=== PATIENT | female | born 1955 | race Caucasian/White ===

== ENCOUNTER 2017-02-06 09:28 | Outpatient (CLI) | payer MEDICARE ==
[2017-02-06 12:34] LABS: Bilirubin Negative (Negative); Blood, Urine Negative (Negative); Clarity Clear (Clear); Glucose, Urine (Dipstick) Negative (Negative); Leukocyte Moderate (Negative); Nitrite Negative (Negative); Protein, Urine (Dipstick) Negative (Neg-Trace); Specific Gravity, Urine 1.015 (1.005-1.030); Urobilinogen 0.2 mg/dL (0.2-1.0)
[2017-02-06 12:42] LABS: #Eosinphils 0.1 thou/uL (0.0-0.7); #Lymphocytes 1.7 thou/uL (1.20-3.40); #Monocytes 0.4 thou/uL (0.11-0.59); #Neutrophils 3.2 thou/uL (1.40-6.50); %Basophils 0.8 % (0.0-1.0); %Eosinophils 2.3 % (0.0-10.0); %Lymphocytes 30.7 % (21.0-51.0); %Monocytes 7.4 % (0.0-10.0); %Neutrophils 58.8 % (42.0-75.0); Hemoglobin 13.6 g/dL (12.0-16.0); Mean Corpuscular HGB CONC 31.7 g/dL (32.0-36.0); Mean Corpuscular Hemoglobin 28.5 pg (27.0-31.0); Mean Corpuscular Volume 90.1 fl (81.0-99.0); Mean Platelet Volume 6.9 fL (7.4-10.4); Platelet Count 217 thou/uL (130-400); RBC Distribution Width 12.3 % (11.5-14.5); Red Blood Cell (RBC) Count 4.76 mill/uL (4.20-5.40); White Blood Cell (WBC) Count 5.4 thou/uL (4.8-10.8)
[2017-02-06 12:53] LABS: ALT (SGPT) 39 U/L (8-55); AST (SGOT) 41 U/L (5-34); Albumin 3.7 g/dL (3.4-4.8); Alkaline Phosphatase 114 U/L (40-150); Anion Gap 15 mmol/L (10-20); BUN (Urea Nitrogen) 21 mg/dL (9.8-20.1); Bilirubin, Direct 0.3 mg/dL (0.1-0.3); Bilirubin, Total 0.5 mg/dL (0.2-1.2); Calc. Creatinine Clearance 0 mL/min (70-130); Calcium 8.8 mg/dL (7.8-10.44); Carbon Dioxide 27 mmol/L (23-31); Cardiac Risk 1.9 (Less than 4.5); Chloride 102 mmol/L (98-107); Cholesterol 115 mg/dl (< 200 Desired); Estimated GFR-MDRD 78; Glucose 113 mg/dL (80-115); HDL Cholesterol 60 mg/dL (>60 Neg Risk); LDL Cholesterol, Calculated 25 mg/dL; Potassium 4.6 mmol/L (3.5-5.1); Protein, Total 6.1 g/dL (6.0-8.3); Sodium 139 mmol/L (136-145); Triglycerides 149 mg/dL (Less than 150)
[2017-02-06 13:23] LABS: Hemoglobin A1c 5.1 % (4.0-6.0)
[2017-02-06 13:28] LABS: Bacteria/HPF Rare-Few HPF (None Seen); RBC/HPF None Seen HPF (0-3); Squamous Epithelial 0-3 HPF (0-3); WBC/HPF 0-3 HPF (0-3)
== END 2017-02-06 09:29 | disposition home or self-care (01) ==
LOC: NAVSJIPCSP 09:28
PROVIDERS: ATTEND Family Medicine
DX: E78.00 Pure hypercholesterolemia, unspecified (principal); E03.9 Hypothyroidism, unspecified; I10 Essential (primary) hypertension; N39.0 Urinary tract infection, site not specified; Z79.899 Other long term (current) drug therapy
CPT/HCPCS: 36415; 80048; 80061; 80076; 81003; 81015; 83036; 84443; 85025

== ENCOUNTER 2017-11-12 07:44 | Outpatient (CLI) | payer MEDICARE ==
--- NOTE | 2017-11-12 09:16 | ULT ---
ULTRASOUND ABDOMEN: Date: 11/12/17 HISTORY: Hepatitis C, B18.2. COMPARISON: None. TECHNIQUE: Real-time Plaza scale and color evaluation of the abdomen is performed with the curvilinear transducer . FINDINGS: Visualized portion of the pancreas is unremarkable. Aorta and IVC are unremarkable. Hepatic echotextu re is normal. No mass. Liver measures 13.0 cm in length. Common bile duct measures 4.0 mm, normal. Right kidney measures 9.2 x 3.8 x 4.5 cm, without mass, hydronephrosis, or abnormal calcification. Gallbladder is normal. Spleen measures 9.9 cm in length. Left kidney measures 10.7 x 4.4 x 4.6 cm, without mass, hydronephro sis, or calcifications. IMPRESSION: Normal examination. No evidence of hepatic mass. POS: [facility]
== END 2017-11-12 07:45 | disposition home or self-care (01) ==
LOC: NAV ULT 07:44
PROVIDERS: ATTEND Internal Medicine Gastroenterology
DX: B19.20 Unspecified viral hepatitis C without hepatic coma (principal)
CPT/HCPCS: 76700

== ENCOUNTER 2021-11-06 17:04 | Emergency (ER) | payer MEDICARE | END 2021-11-06 17:47 | disposition home or self-care (01) | LOC: NAV ERS 17:04 | DX: S31.41XD Laceration without foreign body of vagina and vulva, subsequent encounter (principal); I10 Essential (primary) hypertension; G47.00 Insomnia, unspecified; M19.90 Unspecified osteoarthritis, unspecified site; E03.9 Hypothyroidism, unspecified; E78.5 Hyperlipidemia, unspecified; E78.00 Pure hypercholesterolemia, unspecified; Z79.890 Hormone replacement therapy; Z79.899 Other long term (current) drug therapy; X58.XXXD Exposure to other specified factors, subsequent encounter | CPT/HCPCS: 99282 ==

== ENCOUNTER 2024-09-30 15:38 | Emergency (ER) | payer OTHER ==
[2024-09-30] MEDS ORDERED: Lidocaine 1% (PF) 30 ML VIAL ONE (15:48)
[2024-09-30] MEDS ORDERED: Boostrix 0.5 ML (Tdap) VIAL (>/=7 yrs of age) ONE (16:52)
== END 2024-09-30 17:10 | disposition home or self-care (01) ==
LOC: NAV ERS 15:38
DX: S61.213A Laceration without foreign body of left middle finger without damage to nail, initial encounter (principal); I10 Essential (primary) hypertension; E78.5 Hyperlipidemia, unspecified; E03.9 Hypothyroidism, unspecified; Z23 Encounter for immunization; Z79.890 Hormone replacement therapy; Z79.899 Other long term (current) drug therapy; W25.XXXA Contact with sharp glass, initial encounter
CPT/HCPCS: 12002; 90471; 90715

== ENCOUNTER 2025-07-31 16:11 | Emergency (ER) | payer OTHER | END 2025-07-31 20:20 | disposition home or self-care (01) | LOC: NAV ERS 16:11 | DX: S80.12XA Contusion of left lower leg, initial encounter (principal); I10 Essential (primary) hypertension; E03.9 Hypothyroidism, unspecified; E78.5 Hyperlipidemia, unspecified; Z79.899 Other long term (current) drug therapy; Z79.890 Hormone replacement therapy; W19.XXXA Unspecified fall, initial encounter; Y92.009 Unspecified place in unspecified non-institutional (private) residence as the place of occurrence of the external cause | CPT/HCPCS: 99283 ==

== ENCOUNTER 2025-08-02 11:10 | Outpatient (CLI) | payer OTHER | END 2025-08-02 11:11 | disposition home or self-care (01) | LOC: NAV RAD 11:10 | PROVIDERS: ATTEND Family Medicine | DX: M25.552 Pain in left hip (principal); M79.662 Pain in left lower leg; S72.142A Displaced intertrochanteric fracture of left femur, initial encounter for closed fracture ==

== ENCOUNTER 2025-08-02 13:02 | Emergency (ER) | payer OTHER ==
[2025-08-02 14:33] LABS: Hematocrit 35.0 % (36.0-47.0); Hemoglobin 12.3 g/dL (12.0-16.0); Mean Corpuscular Hemoglobin 29.0 pg (27.0-31.0); Mean Corpuscular Volume 82.7 fl (78.0-98.0); Platelet Count 264 10x3/uL (130-400); Red Blood Cell (RBC) Count 4.23 mill/uL (4.20-5.40); White Blood Cell (WBC) Count 11.7 10x3/uL (4.8-10.8)
[2025-08-02 14:35] LABS: Platelet Adequacy Comment Appears Adequate
[2025-08-02 14:36] LABS: ALT (SGPT) 14 U/L (Less than 34); AST (SGOT) 32 U/L (11-34); Albumin 3.6 g/dL (3.1-4.5); Alkaline Phosphatase 61 U/L (40-110); Anion Gap 14 mmol/L (10-20); BUN (Urea Nitrogen) 22 mg/dL (9.8-20.1); Bilirubin, Total 0.8 mg/dL (0.3-1.2); Calc. Creatinine Clearance 0 mL/min (70-130); Calcium 8.8 mg/dL (7.8-10.44); Carbon Dioxide 26 mmol/L (23-31); Chloride 99 mmol/L (98-107); Globulin 2.8 g/dL (2.4-3.5); Glucose 127 mg/dL (80-115); Potassium 4.3 mmol/L (3.5-5.1); Sodium 135 mmol/L (136-145)
== END 2025-08-02 18:24 | disposition short-term general hospital (02) ==
LOC: NAV ERS 13:02
DX: S72.142A Displaced intertrochanteric fracture of left femur, initial encounter for closed fracture (principal); M79.662 Pain in left lower leg; E03.9 Hypothyroidism, unspecified; I10 Essential (primary) hypertension; E78.5 Hyperlipidemia, unspecified; Z79.899 Other long term (current) drug therapy; Z79.890 Hormone replacement therapy; W19.XXXA Unspecified fall, initial encounter
CPT/HCPCS: 73502; 73562; 73590; 80053; 85025; 96374; 96376; 99284; J2272; J7042